=== PATIENT | female | born 1990 | race Caucasian/White ===

== ENCOUNTER 2016-09-21 17:25 | Emergency (ER) | payer OTHER ==
[~2016-09-21] VITALS: Ht 162.6 cm; Wt 63.6 kg
[2016-09-21 17:41] VITALS: BP 111/78; RESP 16; O2SAT 98
--- NOTE | 2016-09-21 19:45 | DRSVH ---
PROCEDURE: X-RAY NECK SOFT TISSUE ([id number]) INDICATIONS: possible chicken bone in esophagus TECHNIQUE: 2 views of the neck were acquired. COMPARISON: None. FINDINGS: Airway: The airway appears patent. Soft tissues: Prevertebral soft tissues are normal in thickness. The epiglottis and aryepiglottic f olds appear normal. No soft tissue gas. 3 mm linear focus of increased opacity below the hyoid bone along the posterior aspect of the trachea at the level of C4. Bones: No suspicious bony lesions. Visualized cervical spine is normally aligned. IMPRESSION: 3 mm linear opacity as described above. This is overall nonspecific. Foreign body cannot be definitively excluded. Dictated by: Deann Jones M.D. on 09/21/2016 at 19:43 Approved by: Deann Jones M.D. on 09/21/2016 at 19:43
--- NOTE | 2016-09-21 20:40 | ED.REPORT ---
HPI-General Illness Date of Service Sep 21, 2016 ED Provider: John Esparza MD Pt is a healthy 26 y/o female who presents to ER complaining of throat pain secondary to swallowing a chicken bone around 14:00 today. Symptoms have improved since the incident, but she continues to have foreign body sensation in her throat. Immediately after the event she attempted to induce vomiting to with no success. Patient was seen at urgent care for symptoms. Nursing Notes Stated Complaint: SWALLOWED A CHICKEN BONE Chief Complaint: ENT & Mouth Nursing Notes Reviewed: Yes Allergies: Coded Allergies: No Known Allergies (Unverified , 09/21/16) General Time Seen by MD: 20:39 Chief Complaint Other (Swallowed Chicken Bone) Hx Obtained From: Patient Arrived By: Walk-in Sudden in Onset?: Yes Onset Occurred: 9 - 12 hours ago Symptom Duration: Since onset Caused by: Accidental Similar Sx Previous: No Past Medical History Past Medical History Notes: None available Past Surgical History none available Social History Other Social History: Good social support Unable to Obtain History Past medical history Review of Systems Full Review of Systems Constitutional: Denies: Chills, Fever Ears / Nose / Throat: Reports: Throat pain, Denies: Mouth pain Respiratory: Denies: Non-productive cough, Shortness of breath Cardiovascular: Denies: Chest pain GI: Denies: Abdominal pain, Nausea, Vomiting (Pt tried to induce vomiting) Complete sys rev & neg: except as marked. Physical Exam Vital Signs Vital Signs Date Time Temp Pulse Resp B/P Pulse Ox O2 Delivery O2 Flow Rate FiO2 09/21/16 21:18 77 16 111/78 98 09/21/16 17:41 36.2 77 16 111/78 98 Initial VS: Reviewed Skin: Warm, Dry, No cyanosis General/Constitutional: Awake, Alert Head / Eyes: Atraumatic, Normocephalic ENT: Airway patent, Mucous membranes moist difficulty swallowing Neck: Atraumatic, No swelling Respiratory / Chest: Atraumatic, Breath sounds = bilat Cardiovascular: Heart rate NL, Regular rhythm Abdomen: Atraumatic, Non-tender Interpretation & Diagnostics X-Ray Interpretation Xray Interpretation: IMPRESSION: 3 mm linear opacity as described above. This is overall nonspecific. Foreign body cannot be definitively excluded. Dictated by: Deann Jones M.D. on 09/21/2016 at 19:43 Approved by: Deann Jones M.D. on 09/21/2016 at 19:43 X-Ray Ordered: Neck Interpretation / Wet Read by: Interpret - Radiologist Re-Eval/Medical Decision Time of Eval: 20:55 Patient Status: Condition improved Re-Evaluation/Progress Note: Pt is given instructions to visit a specialist tomorrow after reviewing her X-ray. She understands and agrees with the treatment plan, and has no further questions. Patient is pain-free Consultation : Referral / Consult Name: Danie Colin MD Consulted With: ENT Call Returned at: 20:57 Counseled Regarding: Diagnosis, Lab results, Need for follow-up, When/why to return to ED Discharge & Departure Primary Impression: Foreign body in hypopharynx Encounter type: initial encounter Qualified Code: T17.208A - Unspecified foreign body in pharynx causing other injury, initial encounter Disposition: Home Discharge Condition All VS Reviewed: Yes Condition: Stable Additional Instructions: The ENT clinic will see you in the morning. I spoke with Dr. Danie melendez who agreed to make arrangements for you to be seen tomorrow. Call the clinic when they open and let them know you were seen in the emergency department and that the ENT doctor [employer] wanted you seen in the morning. Return to the emergency department tonight if you develop severe pain or any respiratory difficulty. Referrals: [facility] (PCP) Tresaibdavida Attestation Portions of this note were transcribed by Kevin Rao and Den Ramos. I, personally performed the history, physical exam and medical decision -making; I reviewed and confirmed the accuracy of the information in the transcribed note. Signed by: Mj Del Rosario, 09/21/16 and 21:53. John Esparza MD Sep 21, 2016 20:40 Kevin Rao Sep 21, 2016 20:50 DEN RAMOS Sep 21, 2016 21:54
[2016-09-21 21:18] VITALS: BP 111/78; PULSE 77; RESP 16; O2SAT 98
== END 2016-09-21 21:19 | disposition home or self-care (01) ==
LOC: SED 17:25
DX: T17.208A Unspecified foreign body in pharynx causing other injury, initial encounter (principal); X50.9XXA Other and unspecified overexertion or strenuous movements or postures, initial encounter; Y93.89 Activity, other specified; Y92.89 Other specified places as the place of occurrence of the external cause; Y99.8 Other external cause status